=== PATIENT | male | born 1940 | race Caucasian/White ===

== ENCOUNTER → 2018-04-10 | Outpatient (CLI) | payer OTHER, BC ==
--- NOTE | 2018-04-13 20:56 | SLE ---
[facility] [place] [address] POLYSOMNOGRAPHY STUDY Name: BRITTON HUBER Room #: REG [facility] M.R.#: [id number] Admission: 04/10/18 Attend Phys: Lenny Kennedy MD Discharge: Date of : 36 Report #: [id number] THIS REPORT FOR: //name// CC: Lenny Fitzpatrick MD DATE OF SERVICE: 04/10/2018 ATTENDING PHYSICIAN: Dr. Marc Fitzpatrick. The patient is a 77-year-old who weighs 219 pounds and is 74 inches tall with a BMI of 28.1. The patient has history of severe sleep apnea for which he has been on CPAP at 11 cm water. Another CPAP titration study was requested by the patient's primary assembler lay ups to make sure the CPAP pressure is effective. During the night study, the patient spent 402 minutes in bed and slept for 363 minutes with a sleep efficiency of 90%. Sleep latency was 9.1 minutes with a REM latency of 98.1 minutes. Overall sleep architecture showed increased stage 1 sleep, normal stage 2 sleep, reduced N3 sleep and normal REM sleep. EKG monitoring revealed an average heart rate of 60 beats per minute with a maximum 84 beats per minute. It appeared to be slow atrial flutter throughout which was a new finding compared to previous night study. There was also a 5-beat run of narrow complex tachycardia. PLMS were seen at an index of 70 per hour and 3.8 per hour caused EEG arousals. The patient was started on pressure of 11 cm water, which he normally uses at home and titrated up to 12 cm water. At the final pressure, the patient slept for 241 minutes. The patient had 52 minutes of REM sleep. The patient had supine sleep throughout. The patient's AHI was 0 per hour and oxygen saturations remained above 92%. IMPRESSION: 1. Sleep apnea diagnosed previously. 2. Severe periodic limb movements of sleep. 3. Abnormal EKG consistent with slow atrial flutter. ( New since previous night study) RECOMMENDATIONS: 1. CPAP at 12 cm water completely eliminated the patient's sleep apnea and should be used on a nightly basis. 2. Follow up in 4-6 weeks to assess compliance with CPAP and to document clinical improvement. [address] [address] POLYSOMNOGRAPHY STUDY Name: BRITTON HUBER Room #: REG [facility] Collier#: [id number] Admission: 04/10/18 Attend Phys: Lenny Kennedy MD Discharge: Date of : 36 Report #: [id number] 3. Weight loss is advised. 4. Avoid [employer] depressants. 5. Cautioned regarding driving until symptoms of sleep apnea have resolved with the CPAP. 6. Follow up with Cardiology if clinically indicated regarding abnormal EKG. Consider comparison with resting EKG. <ELECTRONICALLY SIGNED> By: Lenny Kennedy MD 04/13/18 [id number] Lenny Kennedy MD /bert
== END ==
LOC: SLEEPLAB 14:46
DX: G47.30 Sleep apnea, unspecified (principal); G47.61 Periodic limb movement disorder; R94.31 Abnormal electrocardiogram [ECG] [EKG]